=== PATIENT | female | born 1965 | race Hispanic/Latino ===

== ENCOUNTER → 2018-12-04 | Day surgery (SDC) | payer BC ==
[~2018-12-04] MED LIST: ATORVASTATIN CA20 MG PO; FENTANYL CITRATE/PF 100MCG/2 ML INJ ONE; HYOSCYAMINE SULFATE 0.5 MG/ML INJ ONE; LEVOTHYROXINE88 MCG PO; LISINOPRIL10 MG PO; METFORMIN HCL850 MG PO; MIDAZOLAM HCL 2 MG/2 ML VIAL ONE; PROPOFOL IV EMULSION 10 MG/ML 50 ML VIAL ONE
--- OUTSIDE RECORDS SUMMARY | 2018-12-04 06:31 | XMS REPORT | Clinical Summary ---
Author Author [facility] Address Unknown Phone Unavailable Care Team Providers Care Ecological Modeler Name Role Phone Edda Kaur MD PCP Allergies No Known Allergies Medications End Date Status Medication Sig Dispensed Refills Start Date Active alendronate (FOSAMAX) 70 0 MG tablet 6 Active levothyroxine (SYNTHROID, 0 LEVOTHROID) 88 MCG tablet 6 Active Problems Problem Noted Date Vaginal prolapse 07/07/2016 Uterovaginal prolapse, incomplete 03/16/2016 Rectocele 03/16/2016 Cystocele 03/16/2016 Vaginal atrophy 03/16/2016 Cervical polyp 03/16/2016 Family History Relation Name Status Comments Father Alive Mother Alive Social History Date Tobacco Use Types Packs/Day Years Used 1987 - 2009 Former Smoker Cigarettes 0.1 20 Smokeless Tobacco: Never Used Alcohol Use Drinks/Week oz/Week Comments No Sex Assigned at Date Recorded Not on file Industry Job Start Date Occupation Not on file Not on file Not on file Travel End Travel History Travel Start No recent travel history available. Last Filed Vital Signs Not on file Plan of Treatment Health Maintenance Due Date Last Done Comments CERVICAL CANCER SCREENING 1984 BREAST CANCER SCREENING 2013 COLON CANCER SCREENING 2013 SHINGLES VACCINES (1 of 2013 2) INFLUENZA VACCINE 06/21/2018 Implants Device Identifier Shelf Expiration Date Model / Serial / Lot Implanted Type Area Manufactur er [id number] / / [id number] Matrix [employer] Floseal 5ml W/ Humn F2 Surgical RUIZ - [id number] Implants; BIOSCIENCE Implanted: Qty: 1 on 07/07/2016 by [employer]; Claudine Ruiz MD Extenders; Surgical Wires 03/29/2019 [id number] / / [id number] System Sling [employer] Trnsvagnl Urological N/A: Bladder BSC Mesh Asmbly Advantage Fit - [id number] Implants UROLOGY/GY Implanted: 07/07/2016 (Quantity not or Sets NECOLOGY on file) Results Not on fileafter 12/03/2017 Insurance Payer Benefit Subscriber ID Type Phone Address Plan / Group BCBS BCBS xxxxxxxxxxxx PPO CHOICE PPO/MARIO [employer]ARCON PPO Advance Directives Patient has advance care planning documents on file. For more information, stacie chahal contact: Tucker Gardner [phone] [facility] [place] [address]
[2018-12-04 10:30] VITALS: BP 119/87
--- NOTE | 2018-12-04 12:38 | Operative Report ---
DATE OF PROCEDURE: December 04, 2018 REFERRING PHYSICIAN: Dr. Sujata Yeh. PROCEDURE PERFORMED: Colonoscopy and polypectomy. INDICATIONS FOR PROCEDURE: Colorectal cancer screening. MEDICATION: Patient was done under MAC. Please see anesthesiologist's note. PROCEDURE: With the patient in the left lateral decubitus position, the flexible fiberoptic Olympus colonoscope was inserted into the rectum with ease and advanced all the way to the cecum. The scope was then withdrawn slowly. Mucosa overlying the cecum, ascending colon, transverse colon and descending colon appeared to be within normal limits. One minute polyp was hot biopsied from the sigmoid colon. A single diverticulum was noted in the sigmoid colon. Four polyps were hot biopsied from the rectum. The scope was then retroflexed into the distal rectum and small internal hemorrhoids were noted, none of which was actively bleeding. The scope was then straightened out. It was subsequently withdrawn. Patient tolerated procedure well. IMPRESSION: 1. Sigmoid colon polyp hot biopsied, site hemoclipped. 2. Diverticulosis, minimal, sigmoid colon. 3. Rectal polyps times 4 hot biopsied. 4. Internal hemorrhoids, none actively bleeding. PLAN: Follow up histology. Initiate high-fiber low-fat diet. Initiate high-fiber supplement. A total of 5 polyps were removed. Patient might benefit from a followup colonoscopy in 3 to 5 years. Job#: [id number] EV cc:SUJATA YEH MD
== END | disposition home or self-care (01) ==
LOC: OR 06:29
PROVIDERS: ATTEND Internal Medicine Gastroenterology
DX: Z12.11 Encounter for screening for malignant neoplasm of colon (principal); D12.8 Benign neoplasm of rectum; K63.5 Polyp of colon; K57.30 Diverticulosis of large intestine without perforation or abscess without bleeding; K64.8 Other hemorrhoids; E11.9 Type 2 diabetes mellitus without complications; E03.9 Hypothyroidism, unspecified; I10 Essential (primary) hypertension; Z79.84 Long term (current) use of oral hypoglycemic drugs
CPT/HCPCS: 36415; 45384; 82948; 93005; J1980; J2250; 45378